=== PATIENT | female | born 1940 | race Caucasian/White ===

== ENCOUNTER 2016-09-24 03:37 | Inpatient (IN) | payer OTHER ==
[~2016-09-24] VITALS: Ht 162.6 cm; Wt 88.4 kg
[2016-09-24 04:11] LABS: ADD MIUA? YES; BILIRUBIN NEGATIVE; BLOOD SMALL; COLOR YELLOW ((YELLOW)); GLUCOSE (STRIP) NEGATIVE; KETONES 5; LEUKOCYTES TRACE; NITRITE NEGATIVE; PROTEIN (STRIP) 30; SPECIFIC GRAVITY 1.012 (1.000-1.030)
[2016-09-24 04:24] LABS: EOSINOPHIL (%) 0 % (0-5); HEMATOCRIT 42.5 % (36.0-46.0); IMMATURE GRANULOCYTE (%) 0.8 % (0.0-0.7); INSTRUMENT ABS NEUTROPHIL CT 2.4 K/uL; LYMPHOCYTE COUNT 0.8 K/uL (1.0-2.8); MCH 27.8 PG (29.0-34.0); MCHC 30.1 G/DL (30.0-36.0); MCV 92.2 FL (83-99); MEAN PLAT.VOLUME 11.8 uM^3 (9.5-12.4); MONOCYTE (%) 14.2 % (3-12); MONOCYTE COUNT 0.5 K/uL (0-0.8); NEUTROPHIL COUNT 2.4 K/uL (1.8-6.4); PLATELET COUNT 165 K/uL (156-360); RBC DIS.WIDTH-CV 13.2 % (11.8-14.6); RBC DIS.WIDTH-SD 45.1 % (39-53); RED BLOOD COUNT 4.61 M/uL (3.80-5.20); WHITE BLOOD COUNT 3.7 K/uL (4.1-10.2)
[2016-09-24 04:35] LABS: BACTERIA 1+ /HPF; EPITHELIAL CELLS RARE /HPF; MUCUS TRACE /LPF; RED BLOOD CELLS 0-5 /HPF (0-5); UCUL ADDED? NO; WHITE BLOOD CELLS 20-30 /HPF (0-5)
[2016-09-24 04:36] LABS: CHLORIDE 89 mEq/L (99-109); POTASSIUM 3.9 mEq/L (3.7-5.4); SODIUM 135 mEq/L (136-147)
[2016-09-24 04:36] LABS: GRANULAR CASTS 30-35 /LPF
[2016-09-24 04:38] LABS: GLUCOSE 113 mg/dL (70-99); INTER. NORMALIZED RATIO 1.1; PROTHROMBIN TIME 10.7 (9.2-11.2); PTT 31.5 (25-32)
[2016-09-24 04:39] LABS: ANION GAP 13 MEQ/L (2-14)
[2016-09-24 04:40] LABS: TOTAL BILIRUBIN 0.6 mg/dL (0.0-1.0)
[2016-09-24 04:41] LABS: ALKALINE PHOSPHATASE 50 IU/L (3-129)
[2016-09-24 04:42] LABS: GFR ESTIMATE (CALCULATED) > 59 mL/min/
[2016-09-24 04:43] LABS: UREA NITROGEN (BUN) 20 mg/dL (9-23)
[2016-09-24 04:45] LABS: CREATINE KINASE 243 IU/L (1-294); LIPASE 31 U/L (1.0-51.0)
[2016-09-24 04:46] LABS: TROP-I INTERPRETATION NEGATIVE; TROPONIN-I 0.22 ng/mL (0.0-0.30)
[2016-09-24] MEDS ORDERED: VENTOLIN HFA18 GM IH (07:53)
[2016-09-24] MEDS ORDERED: ADVIL200 MG PO (07:53)
[2016-09-24 13:51] VITALS: BP 138/64
[2016-09-24 16:56] VITALS: BP 142/68
[2016-09-24 19:05] VITALS: BP 152/67
[2016-09-24 22:48] VITALS: BP 147/72
[2016-09-25 02:53] VITALS: BP 157/72
[2016-09-25 07:20] VITALS: BP 150/78
[2016-09-25 07:37] LABS: BASE EXCESS 12.5 mEq/L (-3 to +3); BICARBONATE 40.2 mEq/L (22-26); CARBOXY HGB 1.8 % (0-5); COMMENTS - BLOOD GASES A+C+; DEVICE NCH; METHEMOGLOBIN 1.7 % (0-1.5); O2 FLOW 8 L/MIN; PCO2 68 mm Hg (35-45); PO2 57 mm Hg (80-100); SITE RR; TOTAL RESP RATE 28 resp/min; pH 7.38 (7.35-7.45)
[2016-09-25 08:09] LABS: EOSINOPHIL (%) 0 % (0-5); HEMATOCRIT 37.4 % (36.0-46.0); IMMATURE GRANULOCYTE (%) 1.3 % (0.0-0.7); INSTRUMENT ABS NEUTROPHIL CT 2.5 K/uL; LYMPHOCYTE COUNT 0.4 K/uL (1.0-2.8); MCHC 30.5 G/DL (30.0-36.0); MCV 91.9 FL (83-99); MEAN PLAT.VOLUME 11.9 uM^3 (9.5-12.4); MONOCYTE (%) 8.4 % (3-12); MONOCYTE COUNT 0.3 K/uL (0-0.8); NEUTROPHIL (%) 78.7 % (45-76); NEUTROPHIL COUNT 2.5 K/uL (1.8-6.4); PLATELET COUNT 152 K/uL (156-360); RBC DIS.WIDTH-CV 12.9 % (11.8-14.6); RBC DIS.WIDTH-SD 43.5 % (39-53); RED BLOOD COUNT 4.07 M/uL (3.80-5.20); WHITE BLOOD COUNT 3.1 K/uL (4.1-10.2)
[2016-09-25 08:39] LABS: ANION GAP 9 MEQ/L (2-14); CHLORIDE 103 MEQ/L (99-109); GFR ESTIMATE (CALCULATED) > 59 mL/min/; MAGNESIUM 1.8 mg/dl (1.3-2.7); SAMPLE HEMOLYSIS CHECK 1; SAMPLE ICTERIC CHECK 0; SAMPLE LIPEMIA CHECK 0; UREA NITROGEN (BUN) 8 mg/dL (9-23)
[2016-09-25 08:41] LABS: GLUCOSE 190 mg/dL (70-99); POTASSIUM 4.5 MEQ/L (3.7-5.4); SODIUM 145 MEQ/L (136-147)
[2016-09-25 11:00] VITALS: BP 152/72
[2016-09-25 13:37] LABS: INTER. NORMALIZED RATIO 1.1; PTT 26.9 (25-32)
[2016-09-25 16:09] LABS: BASE EXCESS 12.6 mEq/L (-3 to +3); BICARBONATE 39.2 mEq/L (22-26); CARBOXY HGB 1.8 % (0-5); COMMENTS - BLOOD GASES A+C+; DEVICE HFNC; METHEMOGLOBIN 1.7 % (0-1.5); O2 FLOW 4 L/MIN; PCO2 59 mm Hg (35-45); PO2 60 mm Hg (80-100); SITE RR; pH 7.43 (7.35-7.45)
[2016-09-25 16:38] VITALS: BP 147/64
[2016-09-25 17:44] LABS: D-DIMER ELISA 2.42 mg/L FEU (< 0.57)
[2016-09-26 00:56] VITALS: BP 164/65
[2016-09-26 07:30] VITALS: BP 160/80
[2016-09-26 07:48] LABS: ANION GAP 12 MEQ/L (2-14); CHLORIDE 103 MEQ/L (99-109); GFR ESTIMATE (CALCULATED) > 59 mL/min/; GLUCOSE 176 mg/dL (70-99); MAGNESIUM 1.8 mg/dl (1.3-2.7); POTASSIUM 4.3 MEQ/L (3.7-5.4); SAMPLE HEMOLYSIS CHECK 0; SAMPLE ICTERIC CHECK 0; SAMPLE LIPEMIA CHECK 0; SODIUM 141 MEQ/L (136-147); UREA NITROGEN (BUN) 7 mg/dL (9-23)
[2016-09-26 09:06] LABS: HEMATOCRIT 40.1 % (36.0-46.0); MCH 28.1 PG (29.0-34.0); MCHC 30.7 G/DL (30.0-36.0); MCV 91.8 FL (83-99); MEAN PLAT.VOLUME 12.6 uM^3 (9.5-12.4); PLATELET COUNT 137 K/uL (156-360); RBC DIS.WIDTH-SD 43.8 % (39-53); RED BLOOD COUNT 4.37 M/uL (3.80-5.20)
[2016-09-26 09:40] LABS: ANISOCYTOSIS 1+; EOSINOPHIL (%) 0 % (0-5); IMMATURE GRANULOCYTE (%) 3.8 % (0.0-0.7); IMMATURE GRANULOCYTE COUNT 0.2 K/uL; LYMPHOCYTE COUNT 0.5 K/uL (1.0-2.8); MONOCYTE COUNT 0.4 K/uL (0-0.8); NEUTROPHIL (%) 79.2 % (45-76)
[2016-09-26 10:39] VITALS: BP 158/76
[2016-09-26 15:36] VITALS: BP 158/70
[2016-09-26 19:17] VITALS: BP 164/70
[2016-09-26 23:54] VITALS: BP 180/76
[2016-09-27 03:39] VITALS: BP 160/68
[2016-09-27 06:29] LABS: HEMATOCRIT 37.6 % (36.0-46.0); MCHC 30.6 G/DL (30.0-36.0); MCV 91.5 FL (83-99); MEAN PLAT.VOLUME 12.2 uM^3 (9.5-12.4); PLATELET COUNT 160 K/uL (156-360); RBC DIS.WIDTH-SD 43.1 % (39-53); RED BLOOD COUNT 4.11 M/uL (3.80-5.20)
[2016-09-27 06:33] LABS: WHITE BLOOD COUNT 6.7 K/uL (4.1-10.2)
[2016-09-27 06:41] LABS: ANION GAP 5 MEQ/L (2-14); CHLORIDE 101 MEQ/L (99-109); GFR ESTIMATE (CALCULATED) > 59 mL/min/; GLUCOSE 173 mg/dL (70-99); MAGNESIUM 1.6 mg/dl (1.3-2.7); POTASSIUM 3.6 MEQ/L (3.7-5.4); SAMPLE HEMOLYSIS CHECK 0; SAMPLE ICTERIC CHECK 0; SAMPLE LIPEMIA CHECK 0; SODIUM 143 MEQ/L (136-147); UREA NITROGEN (BUN) 11 mg/dL (9-23)
[2016-09-27 06:53] VITALS: BP 162/68
[2016-09-27 07:53] LABS: ABS NEUTROPHIL COUNT 6.1; BAND NEUTROPHILS 5.2 % (0-8.0); EOSINOPHIL ABS CT 0; INSTRUMENT ABS NEUTROPHIL CT 5.1 K/uL; LYMPHOCYTES 2.6 % (15.0-45.0); METAMYELOCYTES 2.6 %; PLAT.SUFFICIENCY ADEQUATE; SEG.NEUTROPHILS 85.2 % (46.0-76.0)
[2016-09-27 11:03] VITALS: BP 120/59
[2016-09-27 15:25] VITALS: BP 128/60
[2016-09-27 19:39] VITALS: BP 100/51
[2016-09-27 22:41] VITALS: BP 148/75
[2016-09-28 03:42] VITALS: BP 140/68
[2016-09-28 07:05] LABS: ANION GAP 10 MEQ/L (2-14); CHLORIDE 97 MEQ/L (99-109); GFR ESTIMATE (CALCULATED) > 59 mL/min/; MAGNESIUM 1.6 mg/dl (1.3-2.7); POTASSIUM 3.9 MEQ/L (3.7-5.4); SAMPLE HEMOLYSIS CHECK 0; SAMPLE ICTERIC CHECK 0; SAMPLE LIPEMIA CHECK 0; SODIUM 143 MEQ/L (136-147); UREA NITROGEN (BUN) 10 mg/dL (9-23)
[2016-09-28 07:11] LABS: GLUCOSE 118 mg/dL (70-99)
[2016-09-28 07:56] VITALS: BP 150/70
[2016-09-28 08:07] LABS: HEMATOCRIT 41.4 % (36.0-46.0); MCH 27.4 PG (29.0-34.0); MCHC 30.2 G/DL (30.0-36.0); MCV 90.8 FL (83-99); NRBC (%) 0.3 /100 WBC (0-0); RBC DIS.WIDTH-CV 13.3 % (11.8-14.6); RBC DIS.WIDTH-SD 44.2 % (39-53); RED BLOOD COUNT 4.56 M/uL (3.80-5.20)
[2016-09-28 08:26] LABS: ABS NEUTROPHIL COUNT 7.5; ATYPICAL LYMPHOCYTE 5.2 %; EOSINOPHIL ABS CT 0; INSTRUMENT ABS NEUTROPHIL CT 6.8 K/uL; LYMPHOCYTES 4.3 % (15.0-45.0); MEAN PLAT.VOLUME 13.1 uM^3 (9.5-12.4); PLAT.SUFFICIENCY ADEQUATE; PLATELET COUNT 139 K/uL (156-360); SMUDGE CELLS 3.4
[2016-09-28 09:17] LABS: WHITE BLOOD COUNT 9.2 K/uL (4.1-10.2)
[2016-09-28 12:04] VITALS: BP 140/65
[2016-09-28 17:05] VITALS: BP 134/63
[2016-09-28 18:52] VITALS: BP 139/65
[2016-09-28 22:26] VITALS: BP 149/84
[2016-09-29 03:41] VITALS: BP 151/71
[2016-09-29 06:29] LABS: HEMATOCRIT 38.2 % (36.0-46.0); MCH 27.5 PG (29.0-34.0); MCHC 30.6 G/DL (30.0-36.0); MCV 89.9 FL (83-99); RBC DIS.WIDTH-CV 13.1 % (11.8-14.6); RBC DIS.WIDTH-SD 42.7 % (39-53); RED BLOOD COUNT 4.25 M/uL (3.80-5.20); WHITE BLOOD COUNT 7.4 K/uL (4.1-10.2)
[2016-09-29 06:52] LABS: ANION GAP 7 MEQ/L (2-14); CHLORIDE 96 MEQ/L (99-109); GFR ESTIMATE (CALCULATED) > 59 mL/min/; GLUCOSE 139 mg/dL (70-99); POTASSIUM 3.3 MEQ/L (3.7-5.4); SAMPLE HEMOLYSIS CHECK 0; SAMPLE ICTERIC CHECK 0; SAMPLE LIPEMIA CHECK 0; SODIUM 143 MEQ/L (136-147); UREA NITROGEN (BUN) 9 mg/dL (9-23)
[2016-09-29 07:01] LABS: MAGNESIUM 1.3 mg/dl (1.3-2.7)
[2016-09-29 07:06] LABS: PLATELET COUNT 185 K/uL (156-360)
[2016-09-29 07:16] VITALS: BP 143/66
[2016-09-29 08:06] LABS: ABS NEUTROPHIL COUNT 6.4; ATYPICAL LYMPHOCYTE 4.4 %; BAND NEUTROPHILS 5.2 % (0-8.0); EOSINOPHIL ABS CT 0; INSTRUMENT ABS NEUTROPHIL CT 5.3 K/uL; LYMPHOCYTES 1.7 % (15.0-45.0); PLAT.SUFFICIENCY ADEQUATE; SEG.NEUTROPHILS 81.7 % (46.0-76.0); SMUDGE CELLS 11.3
[2016-09-29 11:29] VITALS: BP 150/86
[2016-09-29 15:03] LABS: POC NON-PRINT COM 1 ND
[2016-09-29 15:04] LABS: POC NON-PRINT COM 1 ND
[2016-09-29 15:19] LABS: POC NON-PRINT COM 1 ND
[2016-09-29 15:23] LABS: POC NON-PRINT COM 1 ND
[2016-09-29 16:08] VITALS: BP 135/76
[2016-09-29 19:08] VITALS: BP 142/74
[2016-09-29 22:39] VITALS: BP 150/69
[2016-09-30 03:31] VITALS: BP 124/68
[2016-09-30 04:57] LABS: HEMATOCRIT 39.5 % (36.0-46.0); MCH 27.7 PG (29.0-34.0); MCHC 30.6 G/DL (30.0-36.0); MCV 90.4 FL (83-99); MEAN PLAT.VOLUME 12.4 uM^3 (9.5-12.4); PLATELET COUNT 246 K/uL (156-360); RBC DIS.WIDTH-CV 13.2 % (11.8-14.6); RED BLOOD COUNT 4.37 M/uL (3.80-5.20); WHITE BLOOD COUNT 10.2 K/uL (4.1-10.2)
[2016-09-30 05:04] LABS: CHLORIDE 97 mEq/L (99-109); POTASSIUM 3.6 mEq/L (3.7-5.4); SODIUM 142 mEq/L (136-147)
[2016-09-30 05:05] LABS: MAGNESIUM 1.4 mg/dL (1.3-2.7)
[2016-09-30 05:06] LABS: GLUCOSE 155 mg/dL (70-99)
[2016-09-30 05:07] LABS: ANION GAP 9 MEQ/L (2-14)
[2016-09-30 05:10] LABS: GFR ESTIMATE (CALCULATED) > 59 mL/min/
[2016-09-30 05:11] LABS: UREA NITROGEN (BUN) 13 mg/dL (9-23)
[2016-09-30 05:35] LABS: ABS NEUTROPHIL COUNT 9.1; ATYPICAL LYMPHOCYTE 0.9 %; BAND NEUTROPHILS 0.9 % (0-8.0); EOSINOPHIL ABS CT 0; HYPOCHROMASIA 1+; INSTRUMENT ABS NEUTROPHIL CT 8.1 K/uL; LYMPHOCYTES 1.8 % (15.0-45.0); MACROCYTES 1+; METAMYELOCYTES 0.9 %; MICROCYTOSIS 1+; PLAT.SUFFICIENCY ADEQUATE; POLYCHROMASIA 1+; SEG.NEUTROPHILS 88.3 % (46.0-76.0); TEAR DROP CELLS 1+; TOX.VACUOLIZATION 1+
[2016-09-30 08:37] VITALS: BP 129/68
[2016-09-30 12:00] VITALS: BP 122/58
[2016-09-30 16:58] VITALS: BP 124/63
[2016-09-30 19:26] VITALS: BP 123/63
[2016-09-30 23:20] VITALS: BP 131/69
[2016-10-01 03:28] VITALS: BP 138/69
[2016-10-01 08:18] VITALS: BP 109/57
[2016-10-01 08:52] LABS: EOSINOPHIL (%) 0.5 % (0-5); EOSINOPHIL COUNT 0.1 K/uL (0-0.3); HEMATOCRIT 33.9 % (36.0-46.0); IMMATURE GRANULOCYTE (%) 4.8 % (0.0-0.7); IMMATURE GRANULOCYTE COUNT 0.7 K/uL; INSTRUMENT ABS NEUTROPHIL CT 10.4 K/uL; LYMPHOCYTE COUNT 1.2 K/uL (1.0-2.8); MCH 27.8 PG (29.0-34.0); MCHC 30.4 G/DL (30.0-36.0); MCV 91.4 FL (83-99); MEAN PLAT.VOLUME 12.2 uM^3 (9.5-12.4); MONOCYTE (%) 9.7 % (3-12); MONOCYTE COUNT 1.3 K/uL (0-0.8); NEUTROPHIL (%) 76.2 % (45-76); NEUTROPHIL COUNT 10.4 K/uL (1.8-6.4); PLATELET COUNT 242 K/uL (156-360); RBC DIS.WIDTH-CV 13.5 % (11.8-14.6); RBC DIS.WIDTH-SD 45.1 % (39-53); RED BLOOD COUNT 3.71 M/uL (3.80-5.20); WHITE BLOOD COUNT 13.7 K/uL (4.1-10.2)
[2016-10-01 09:09] LABS: ANION GAP 6 MEQ/L (2-14); CHLORIDE 96 MEQ/L (99-109); GFR ESTIMATE (CALCULATED) > 59 mL/min/; POTASSIUM 3.3 MEQ/L (3.7-5.4); SAMPLE HEMOLYSIS CHECK 0; SAMPLE ICTERIC CHECK 0; SAMPLE LIPEMIA CHECK 0; SODIUM 139 MEQ/L (136-147); UREA NITROGEN (BUN) 17 mg/dL (9-23)
[2016-10-01 09:12] LABS: GLUCOSE 104 mg/dL (70-99)
[2016-10-01 11:30] VITALS: BP 113/56
[2016-10-01 15:26] VITALS: BP 121/58
[2016-10-01 19:25] VITALS: BP 117/56
[2016-10-01 23:40] VITALS: BP 110/57
[2016-10-02 03:48] VITALS: BP 111/53
[2016-10-02 06:45] VITALS: BP 121/53
[2016-10-02 08:58] LABS: HEMATOCRIT 32.2 % (36.0-46.0); MCH 27.9 PG (29.0-34.0); MCHC 29.8 G/DL (30.0-36.0); MCV 93.6 FL (83-99); RBC DIS.WIDTH-SD 46.9 % (39-53); RED BLOOD COUNT 3.44 M/uL (3.80-5.20); WHITE BLOOD COUNT 10.9 K/uL (4.1-10.2)
[2016-10-02 09:36] LABS: MEAN PLAT.VOLUME 12.6 uM^3 (9.5-12.4); PLATELET COUNT 213 K/uL (156-360)
[2016-10-02] MEDS ORDERED: ADVAIR HFA120 INHALA IH (10:50)
[2016-10-02] MEDS ORDERED: XARELTO15 MG PO (10:50)
[2016-10-02] MEDS ORDERED: XARELTO20 MG PO (10:50)
[2016-10-02] MEDS ORDERED: PROTONIX40 MG PO (10:50)
[2016-10-02] MEDS ORDERED: AMLODIPINE BESY10 MG PO (10:50)
[2016-10-02] MEDS ORDERED: PREDNISONE10 MG PO (10:50)
[2016-10-02 10:55] VITALS: BP 112/54
== END 2016-10-02 13:33 | DRG 189 ==
LOC: EME 03:37 → 5EAST 08:31 → EDOF 08:31 → 5EAST 13:03
PROVIDERS: Emergency Medicine; Internal Medicine; Internal Medicine Gastroenterology; Internal Medicine Pulmonary Disease
DX: J96.21 Acute and chronic respiratory failure with hypoxia (principal); J44.0 Chronic obstructive pulmonary disease with (acute) lower respiratory infection; J44.1 Chronic obstructive pulmonary disease with (acute) exacerbation; I26.99 Other pulmonary embolism without acute cor pulmonale; G93.41 Metabolic encephalopathy; J18.9 Pneumonia, unspecified organism; K29.00 Acute gastritis without bleeding; Z99.81 Dependence on supplemental oxygen; N39.0 Urinary tract infection, site not specified; K92.1 Melena; I10 Essential (primary) hypertension; E66.9 Obesity, unspecified; Z68.33 Body mass index [BMI] 33.0-33.9, adult; J45.909 Unspecified asthma, uncomplicated; I67.89 Other cerebrovascular disease; J20.9 Acute bronchitis, unspecified; Z87.11 Personal history of peptic ulcer disease; R19.7 Diarrhea, unspecified; R32 Unspecified urinary incontinence; R15.9 Full incontinence of feces; K26.7 Chronic duodenal ulcer without hemorrhage or perforation; D63.8 Anemia in other chronic diseases classified elsewhere; Z87.891 Personal history of nicotine dependence
CPT/HCPCS: 36600; 70450; 71010; 71020; 71275; 80048; 80053; 81003; 82272; 82550; 82728; 82803; 83605; 83690; 83735; 84466; 84484; 85025; 85027; 85379; 85610; 85730; 87040; 87077; 87086; 87186; 88305; 88342 TC; 93005; 93306; 93970; 94640; 94640 76; 94760; 94799; 97530 GP; 99202; 99281; 99285; C9113; J0696; J2930; J7030; J7050; J7512; J7644; S0028